=== PATIENT | female | born 1965 | race Hispanic/Latino ===

== ENCOUNTER 2016-12-05 02:40 | Emergency (ER) | payer BC ==
[2016-12-05] MEDS ORDERED: PROVENTIL IH ONE ×2 (02:59→03:23)
--- NOTE | 2016-12-05 03:35 | Emergency Department Report ---
ED General Adult HPI - General Chief complaint: Dyspnea/Respdistress Stated complaint: COUGH/SPITTING UP BLOOD/CANCER Time Seen by Provider: 12/05/16 03:34 Source: patient Mode of arrival: Ambulatory Limitations: No Limitations - History of Present Illness Initial comments: Patient is a 51-year-old female past medical history of uterine cancer who presents with hemoptysis and shortness of breath that has been going on for the last 3 hours. Patient states that she gets her care at the [facility] in [facility]. Patient has a history of pulmonary embolism which she is taking Lovenox for she states that her shortness of breath is moderate it's worse with exertion and better with rest. She states that she was just discharged from the hospital yesterday for pneumonia. Patient denies having any chest pain but she does have abdominal pain as a 6 out of 10 and is worse when she coughs better when she rests. - Related Data Allergies Allergy/AdvReac Type Severity Reaction Status Date / Time No Known Allergies Allergy Verified 12/05/16 04:29 ED Review of Systems ROS: Stated complaint: COUGH/SPITTING UP BLOOD/CANCER Other details as noted in HPI Constitutional: weakness Eyes: denies: eye pain, eye discharge, vision change ENT: denies: ear pain, throat pain Respiratory: cough, shortness of breath, SOB with exertion, SOB at rest, other ( hemoptysis) Cardiovascular: denies: chest pain, palpitations Endocrine: no symptoms reported Gastrointestinal: abdominal pain. denies: vomiting Genitourinary: denies: urgency, dysuria, discharge Musculoskeletal: denies: back pain, joint swelling, arthralgia Skin: denies: rash, lesions Neurological: denies: headache, weakness, paresthesias Psychiatric: denies: anxiety, depression Hematological/Lymphatic: denies: easy bleeding, easy bruising ED Past Medical Hx - Past Medical History Previous Medical History?: Yes Hx Hypertension: Yes Hx of Cancer: Yes (uterine with mets to lungs) Hx Psychiatric Treatment: Yes (depression) Additional medical history: Dx with cnc august 2016 - Surgical History Past Surgical History?: No - Social History Smoking Status: Never Smoker Substance Use Type: None ED Physical Exam - General Limitations: No Limitations General appearance: alert, anxious - Head Head exam: Present: atraumatic, normocephalic - Eye Eye exam: Present: normal appearance, EOMI - ENT ENT exam: Present: other (prior red blood on Berry and an oral pharynx.) - Respiratory Respiratory exam: Present: wheezes, other (port and chest wall cavity.) - Cardiovascular Cardiovascular Exam: Present: tachycardia - GI/Abdominal GI/Abdominal exam: Present: soft, normal bowel sounds - Extremities Exam Extremities exam: Present: normal inspection - Back Exam Back exam: Present: normal inspection - Neurological Exam Neurological exam: Present: alert, oriented X3 - Psychiatric Psychiatric exam: Present: normal affect, normal mood - Skin Skin exam: Present: warm, dry, intact, normal color. Absent: rash ED Course Vital Signs 12/05/16 12/05/16 12/05/16 03:12 03:15 03:25 Temperature Pulse Rate 129 H 129 H Pulse Rate [ 74 Bilateral] Respiratory 20 20 Rate Respiratory 22 Rate [Bilateral ] Blood Pressure 167/89 Blood Pressure 167/89 [Right] O2 Sat by Pulse 95 95 Oximetry 12/05/16 12/05/16 12/05/16 03:27 04:53 05:01 Temperature 98.1 F Pulse Rate Pulse Rate [ 122 H Bilateral] Respiratory 20 Rate Respiratory 22 Rate [Bilateral ] Blood Pressure Blood Pressure [Right] O2 Sat by Pulse 95 Oximetry 12/05/16 12/05/16 05:46 05:52 Temperature Pulse Rate 116 H Pulse Rate [ Bilateral] Respiratory 22 22 Rate Respiratory Rate [Bilateral ] Blood Pressure Blood Pressure 138/87 [Right] O2 Sat by Pulse 94 Oximetry - Reevaluation(s) Reevaluation #1: 12/05/16 06:18 Received outside report of CT scan which shows common embolism will cancel CT angiogram as patient already has a pulmonary embolus. Patient is requesting to be transferred to her hospital because "they know her better over there." Will call ED intake manager and will transfer patient over to another hospital. Reevaluation #2: 12/05/16 06:17 Evaluate patient patient's pain has increased will give 100 g of fentanyl. - Consultations Consultation #1: 12/05/16 04:[address] Moreau and nurse practitioner Eunice Florianmi [facility] about transferring patient for further treatment and care. Discussed plan with patient and she agrees the plan. ED Medical Decision Making - Lab Data Result diagrams: 12/05/16 03:41 12/05/16 03:41 Laboratory Results - last 24 hr 12/05/16 12/05/16 03:41 03:41 WBC 17.9 H RBC 3.47 L Hgb 10.2 Hct 31.2 MCV 90 MCH 30 MCHC 33 RDW 16.9 H Plt Count 350 Add Manual Diff Complete Total Counted 100 Seg Neuts % (Manual) 73.0 H Band Neutrophils % 1.0 Lymphocytes % (Manual) 14.0 Reactive Lymphs % (Man) 0 Monocytes % (Manual) 5.0 Eosinophils % (Manual) 0 Basophils % (Manual) 0 Metamyelocytes % 4.0 Myelocytes % 3.0 Promyelocytes % 0 Blast Cells % 0 Nucleated RBC % Not Reportable Seg Neutrophils # Man 13.1 H Band Neutrophils # 0.2 Lymphocytes # (Manual) 2.5 Abs React Lymphs (Man) 0.0 Monocytes # (Manual) 0.9 H Eosinophils # (Manual) 0.0 Basophils # (Manual) 0.0 Metamyelocytes # 0.7 Myelocytes # 0.5 Promyelocytes # 0.0 Blast Cells # 0.0 WBC Morphology Not Reportable Hypersegmented Neuts Not Reportable Hyposegmented Neuts Not Reportable Hypogranular Neuts Not Reportable Smudge Cells Not Reportable Toxic Granulation Not Reportable Toxic Vacuolation Not Reportable Dohle Bodies Not Reportable Pelger-Huet Anomaly Not Reportable Keith Rods Not Reportable Platelet Estimate Appears normal Clumped Platelets Not Reportable Plt Clumps, EDTA Not Reportable Large Platelets Not Reportable Giant Platelets Not Reportable Platelet Satelliting Not Reportable Plt Morphology Comment Not Reportable RBC Morphology Not Reportable Dimorphic RBCs Not Reportable Polychromasia Few Hypochromasia Not Reportable Poikilocytosis Not Reportable Anisocytosis 1+ Microcytosis Not Reportable Macrocytosis Not Reportable Spherocytes Not Reportable Pappenheimer Bodies Not Reportable Sickle Cells Not Reportable Target Cells Not Reportable Tear Drop Cells Not Reportable Ovalocytes Not Reportable Helmet Cells Not Reportable [place] Bodies Not Reportable Rosie Rings Not Reportable Eh Cells Not Reportable Bite Cells Not Reportable Crenated Cell Not Reportable Elliptocytes Not Reportable Acanthocytes (Spur) Not Reportable Rouleaux Not Reportable Hemoglobin C Crystals Not Reportable Schistocytes Not Reportable Malaria parasites Not Reportable Colin Bodies Not Reportable Hem Pathologist Commnt Sent to pathology Sodium 140 Potassium 4.0 Chloride 98.9 Carbon Dioxide 23 Anion Gap 22 BUN 23 H Creatinine 0.7 Estimated GFR > 60 BUN/Creatinine Ratio 32.85 Glucose 111 H Calcium 9.9 Total Bilirubin 0.90 AST 13 ALT 15 Alkaline Phosphatase 91 Total Protein 6.8 Albumin 3.3 L Albumin/Globulin Ratio 0.9 - EKG Data 12/05/16 03:42 EKG shows atrial flutter with 2-1 AV conduction patient has incomplete right bundle branch block no ST segment elevations. - Medical Decision Making Chief medical diagnosis: Pulmonary embolism Differential medical diagnosis: Pneumonia, bronchitis, cancer pain, infection, metabolic and We'll get troponin, CBC, CMP, albuterol, EKG and will consult patient's doctors at [facility] Critical care attestation.: If time is entered above; I have spent that time in minutes in the direct care of this critically ill patient, excluding procedure time. ED Disposition Clinical Impression: Shortness of breath Pulmonary embolism Qualifiers: Pulmonary embolism type: other Chronicity: unspecified Acute cor pulmonale presence: without acute cor pulmonale Qualified Code(s): I26.99 - Other pulmonary embolism without acute cor pulmonale Uterine cancer Qualifiers: Malignant neoplasm of uterus location: unspecified site of uterus Qualified Code(s): C55 - Malignant neoplasm of uterus, part unspecified Disposition: DC/TX-70 ANOTHER TYPE HLTHCARE Is pt being admited?: Yes Does the pt Need Aspirin: No Condition: Stable Referrals: PRIMARY CARE, [Primary Care Provider] - 3-5 Days Time of Disposition: 06:19
[2016-12-05] MEDS ORDERED: NACL 0.9% 1000 ML 1,000 ML IV ONE ×2 (03:43→03:44)
[2016-12-05 03:57] LABS: Hematocrit 31.2 % (30.3-42.9); Hemoglobin 10.2 gm/dl (10.1-14.3); Mean Corpuscular HGB Conc 33 % (30-34); Mean Corpuscular Hemoglobin 30 pg (28-32); Mean Corpuscular Volume 90 fl (79-97); Platelet Count 350 K/mm3 (140-440); Red Blood Count 3.47 M/mm3 (3.65-5.03); Red Cell Distribution Width 16.9 % (13.2-15.2); White Blood Count 17.9 K/mm3 (4.5-11.0)
[2016-12-05 04:17] LABS: Alanine Aminotransferase 15 units/L (7-56); Albumin 3.3 g/dL (3.9-5); Albumin/Globulin Ratio 0.9 %; Alkaline Phosphatase 91 units/L (35-129); Anion Gap 22 mmol/L; BUN/Creatinine Ratio 32.85; Blood Urea Nitrogen 23 mg/dL (7-17); Calcium 9.9 mg/dL (8.4-10.2); Carbon Dioxide 23 mmol/L (22-30); Chloride 98.9 mmol/L (98-107); Glucose 111 mg/dL (65-100); Sodium 140 mmol/L (137-145); Total Protein 6.8 g/dL (6.3-8.2)
[2016-12-05] MEDS ORDERED: NACL ONE (04:26)
[2016-12-05 05:28] LABS: Basophils % (Manual) 0 % (0.0-1.8); Blastocytes % (Manual) 0 %; Eosinophils % (Manual) 0 % (0.0-4.3)
[2016-12-05 05:29] LABS: Anisocytosis 1+; Diff Status Complete; Polychromasia Few
[2016-12-05] MEDS ORDERED: SUBLIMAZE IV ONE (05:45)
--- NOTE | 2016-12-05 07:39 | XRay Report ---
ROUTINE CHEST, TWO VIEWS: HISTORY: Shortness of breath. No comparison. Multiple bilateral mass like lesions are identified in both lungs. The largest mass in the right lung measures 7.4 cm in the right lower lobe. The largest mass in the left lung measures 8.0 cm. No pleural effusion or pneumothorax is appreciated. Heart size is normal. A right Ngpxab-a-Tuaw is in good position. IMPRESSION: Multiple bilateral small and large pulmonary masses concerning for metastatic disease. Further evaluation with CT chest with contrast is recommended. No acute process is appreciated.
--- NOTE | 2016-12-05 08:00 | Admit Criteria Form ---
Admission Criteria Documentation: PULMONARY EMBOLISM Clinical Indications for Admission to Inpatient Care (Place 'X' for any and all applicable criteria): Admission is indicated for 1 or more of the following(1)(2)(3)(4)(5)(6)(7) [ ]I. Hypoxemia [X ]II. Vital sign abnormality (8) indicated by ALL of the following: [X ]a) Vital sign findings not as expected for chronic patient condition or baseline (eg, intentionally low, blood pressure in heart failure) [X ]b) Vital sign abnormality as indicated by 1 or more of the following [X ]l) Tachycardia [ ]ll) Hypotension [ ]lll) Orthostatic vital sign changes [ ]III. History of cancer [X ]IV. History of chronic cardiopulmonary disease (eg. CHF, coronary artery disease, COPD, cor pulmonale) [ ]V. Cardiac arrhythmias of intermediate concern [ ]. Right ventricular dysfunction (eg, by echocardiogram) [ ]VII. Positive cardiac biomarker (eg, troponin T or I > 0.1 ng/mL (mcg/L), highly sensitive troponin I assay greater than 0.014 ng/mL (mcg/L), BNP or NT proBNP > assay threshold)(8 )(10)(11) [ ]VIII. Need for IV narcotics (eg, to treat dyspnea) 1 or more of following: [ ]a) Bleeding before anticoagulation [ ]b) Recent surgery (eg, within 3 months) that increases risk of catastrophic bleeding (eg, spinal surgery, intracranial surgery, cardiovascular surgery) [ ]c) Recent GI bleeding (eg, within 3 months) or known increased risk of GI bleed (eg,esophageal varices, current ulcer) [ ]d) Recent (eg, within 3 months) ischemic stroke [ ]e) History of intracranial bleeding (eg, hemorrhagic stroke) [ ]f) History of active bleeding when anticoagulated [ ]g) Active substance abuse [ ]h) Other risk factor thought to place patient at high risk such that ability to rapidly reverse reversal agent) [ ]X. Documented extensive thrombosis (eg, clot in vena cava or above iliofemoral bifurcation) [ ]Xl. Thrombolysis (eg, catheter-directed) or pharmacomechanical thrombectomy needed[A][B](8) [ ]XIl. Vena cava filter placement needed (eg, unable to anticoagulate)[C](8) [ ]Xlll. with delivery planned (eg, 37 or more weeks' gestation)(14 ) [ ]XlV. Limb-threatening thrombosis (eg, phlegmasia cerula dolens) [ ]XV. Embolism while on anti-coagulation [ ]XVl. Contraindication to outpatient use of medication with rapid anticoagulation effect as indicated by ALL of the following: [ ] a) Contraindication to use of [id number]-cgflvs heparin[E][F ] indicated by 1 or more of the following(16): [ ] i) Documented current or history of heparin-induced thrombocytopenia(15) [ ] ii) Severe thrombocytopenia (eg, platelet count less than 50 ,000/mm3 (50 x109/L)) [ ] iii) Allergy to heparin, pay-dqwnusfyg-cieohi heparin, or product component [ ] iv) Renal failure (creatinine clearance less than 30 mL/min/ 1.73m2 (0.50 mL/sec/1.73m2) or on dialysis) [ ] v) Need for neuraxial anesthesia or spinal puncture anticipated [ ] vi) Inability to manage self-injection (eg. By patient, caregiver, or visiting nurse) [ ] b) Contraindication to use of fondaparinux indicated by 1 or more of the following: [ ] i) Documented current or history of heparin-induced thrombocytopenia (15) [ ] ii) Severe thrombocytopenia (eg, platelet count less than 50 ,000/mm3 (50 x109/L)) [ ] iii) Allergy to fondaparinux, related drugs, or product components [ ] iv) Renal failure (creatinine clearance less than 30 mL/min/ 1.73m2 (0.50 mL/sec/1.73m2) or on dialysis) [ ] v) [ ] vi) Liver disease with coagulopathy (eg, elevated INR due to liver disease) [ ] vii) Mechanical heart valve [ ] viii) Need for neuraxial anesthesia or spinal puncture anticipated [ ] xi) Inability to manage self-injection (eg, by patient, caregiver, or visiting nurse) [ ] c) Contraindication to use of an oral direct thrombin inhibitor (eg, dabigatran) or an oral coagulation factor Xa inhibitor (eg, rivaroxaban, apixaban)[E][F] indicated by 1 or more of the following(17)(18): [ ] i) Severe thrombocytopenia (eg, platelet count less than 50, 000/mm3 (50 x109/L)) [ ] ii) Allergy to medication or product components x109/L)) [ ] iii) Renal failure (creatinine clearance less than 30 mL/min /1.73m2 (0.50 mL/sec/1.73m2) or on dialysis) [ ] iv) [ ] v) Liver disease with coagulopathy (eg, elevated INR due to liver disease) [ ] vi) Mechanical heart valve [ ] vii) Need for neuraxial anesthesia or spinal puncture anticipated [ ]XVll. Inpatient admission required rather than observation care (Also use Pulmonary Embolism: Observation Care guideline as appropriate) because of ANY ONE of the following: [ ] a) Significant autoimmune (thrombocytopenia) or coagulopathic reaction occurs in response to anticoagulation [ ] b) Respiratory symptoms (eg, tachypnea, dyspnea) that are severe or persistent [ ] c) Other condition, treatment, or monitoring requiring inpatient admission The original [employer] content created by [employer] has been revised. The portions of the content which have been revised are identified through the use of italic text or in bold, and [facility] [facility] has neither reviewed nor approved the modified material. All other unmodified content is copyright [employer]. Please see references footnoted in the original [employer] edition 2017
[2016-12-05 08:41] VITALS: BP 126/66
== END 2016-12-05 09:15 | disposition other institution (70) ==
LOC: ED 02:40
DX: I26.99 Other pulmonary embolism without acute cor pulmonale (principal); C55 Malignant neoplasm of uterus, part unspecified; R06.02 Shortness of breath
CPT/HCPCS: 36415; 71020; 80053; 85007; 85025; 87040; 93005; 93010; 94640; 96374; 99285; J3010

== ENCOUNTER 2016-12-13 10:24 | Emergency (ER) | payer BC ==
--- NOTE | 2016-12-13 10:35 | Emergency Department Report ---
ED CPR HPI - General Stated Complaint: CARDIAC ARREST Time Seen by Provider: 12/13/16 10:30 Source: EMS Mode of arrival: Stretcher - History of Present Illness Initial Comments: EMS states that they were informed that the patient "took her last breath 10 minutes prior to arrival". They found the patient apneic and asystolic. They intubated the patient, provided I O access and several rounds of epinephrine. The patient arrives with CPR in progress. There was no return of spontaneous circulation whatsoever. EMS tells me that the family immediately "left the scene". They state that they were not informed of the patient's CODE STATUS at all. The patient has a history of metastatic breast cancer. Patient is noted to have a rather distended abdomen on their report arrival with ecchymosis of the lower aspects/quadrants. I asked the medics if there was any change in the abdominal exam during resuscitation. They stated that no , that was the appearance on their arrival. MD Complaint: found unresponsive, stopped breathing -: minute(s) Place: home Bystander CPR Performed: No Shock Advised: No Initial Findings in the Field: unresponsive, systole ROSC in the Field: No Associated Injuries: No Associated Symptoms: other (unknown) - Related Data Allergies Allergy/AdvReac Type Severity Reaction Status Date / Time No Known Allergies Allergy Verified 12/05/16 04:29 ED Review of Systems ROS: Stated complaint: CARDIAC ARREST Other details as noted in HPI Comment: Unobtainable due to pts medical conditions ED Past Medical Hx - Past Medical History Hx Hypertension: Yes Hx Psychiatric Treatment: Yes (depression) Additional medical history: Dx with cnc august 2016 - Social History Smoking Status: Never Smoker Substance Use Type: None ED Physical Exam - General Limitations: Other (patient is DOA) - Head Head exam: Present: atraumatic - Eye Pupils: Present: other (fixed and dilated) - ENT ENT exam: Present: mucous membranes dry - Neck Neck exam: Present: normal inspection - Respiratory Respiratory exam: Present: normal lung sounds bilaterally (with Ambu bag assist) - Cardiovascular Cardiovascular Exam: Present: other (no heart sounds) - GI/Abdominal GI/Abdominal exam: Present: distended, organomegaly, mass (likely), other (a grossly distended and firm abdomen is found. There is diffuse ecchymosis noted of the lower quadrants bilaterally) - Extremities Exam Extremities exam: Present: other (I'll catheter noted left pretibial) - Back Exam Back exam: Present: other (not visualized) - Neurological Exam Neurological exam: Present: other (GCS is 3) - Skin Skin exam: Present: ecchymosis ED Course - Reevaluation(s) Reevaluation #1: Patient is status post more than 20 minutes of unsuccessful resuscitation with no return of spontaneous circulation. She was pronounced on arrival. The family will be counseled. 12/13/16 10:38 Critical care attestation.: If time is entered above; I have spent that time in minutes in the direct care of this critically ill patient, excluding procedure time. ED Disposition Clinical Impression: Cardiac arrest, Metastatic breast cancer Disposition: DC-20 Is pt being admited?: No Does the pt Need Aspirin: No Condition: Stable Time of Disposition: 10:39
== END 2016-12-13 14:15 ==
LOC: ED 10:24
DX: I46.9 Cardiac arrest, cause unspecified (principal); C50.919 Malignant neoplasm of unspecified site of unspecified female breast; I10 Essential (primary) hypertension
CPT/HCPCS: 99285